=== PATIENT | female | born 1990 | race African-American/Black ===

== ENCOUNTER → 2016-12-28 14:17 | Outpatient (CLI) | payer OTHER | END | disposition home or self-care (01) | LOC: D.RT 14:00 | DX: Z02.71 Encounter for disability determination (principal) ==

== ENCOUNTER 2017-01-09 21:17 | Emergency (ER) | payer OTHER | END 2017-01-10 00:45 | disposition home or self-care (01) | LOC: D.ER 21:17 | DX: J20.9 Acute bronchitis, unspecified (principal); I50.9 Heart failure, unspecified; F17.200 Nicotine dependence, unspecified, uncomplicated ==